=== PATIENT | female | born 2000 | race Two or more races ===

== ENCOUNTER 2020-01-17 17:49 | Emergency (ER) | payer MEDICAID ==
[~2020-01-17] VITALS: Ht 175.3 cm; Wt 97.0 kg
[2020-01-17] MEDS ORDERED: LORA10TA7 PO (17:58)
[2020-01-17] MEDS ORDERED: IBUPROFEN 600 MG TABLET PO ONE (19:15)
[2020-01-17 20:10] VITALS: BP 133/97
== END 2020-01-17 20:16 | disposition home or self-care (01) ==
LOC: EMS 17:49
DX: S80.01XA Contusion of right knee, initial encounter (principal); V49.9XXA Car occupant (driver) (passenger) injured in unspecified traffic accident, initial encounter; Y93.89 Activity, other specified; Y92.89 Other specified places as the place of occurrence of the external cause; Y99.8 Other external cause status